=== PATIENT | female | born 1955 | race Hispanic/Latino ===

== ENCOUNTER → 2018-09-01 | Day surgery (SDC) | payer OTHER ==
[~2018-09-01] MED LIST: FENTANYL CITRATE/PF 100MCG/2 ML INJ ONE; FOLIC ACID1 MG PO; METHOTREXATE2.5 MG PO; MIDAZOLAM HCL 2 MG/2 ML VIAL ONE; ORENCIA 250 MG250 MG; ORENCIA125 MG/1 M IV; PROPOFOL IV EMULSION 10 MG/ML 20 ML VIAL ONE
--- NOTE | 2018-09-01 18:19 | Operative Report ---
DATE OF PROCEDURE: September 01, 2018 REFERRING PHYSICIAN: Dr. Luis Alfredo Oconnor. PROCEDURE PERFORMED: Esophagogastroduodenoscopy with biopsies. INDICATIONS FOR EGD: Acid reflux. MEDICATION: Patient was done under MAC. Please see anesthesiologist's note. PROCEDURE: With patient in left lateral decubitus position, flexible fiberoptic Olympus gastroscope was introduced into the esophagus under direct visualization without any difficulty. There was some patchy erythema noted in the distal esophagus. A minute nodule was noted at the GE junction that was biopsied. The scope was then advanced with ease into the stomach traversing a small sliding hiatal hernia. Mucosa overlying the antrum and the body revealed some patchy erythema, [id number] edema, and biopsies were obtained and sent to stain for H. pylori. Pylorus appeared to be of normal contour and shape, was intubated with ease, and the scope was advanced all the way to the second portion of the duodenum. The scope was then withdrawn slowly and mucosa overlying the proximal second portion and the duodenal bulb appeared to be within normal limits. The scope was then withdrawn back into the stomach and retroflexed, and mucosa overlying the fundus and the cardia appeared to be within normal limits. The scope was then straightened out. The stomach was decompressed. The scope was subsequently withdrawn. Patient tolerated the procedure well. IMPRESSION 1. Distal esophagitis. 2. Minute nodule at gastroesophageal junction, biopsied. 3. Small sliding hiatal hernia. 4. Gastritis, biopsied. Biopsies sent to stain for Helicobacter pylori. PLAN: Follow up histology. Initiate Protonix 40 mg 1 p.o. q.a.m. a.c. Job#: [id number] LPA cc:DR. LUIS ALFREDO OCONNOR
--- OUTSIDE RECORDS SUMMARY | 2018-09-11 11:54 | XMS REPORT ---
Author Author Abimbola Barnett Organization [employer] Address Unknown Phone Unavailable Care Team Providers Care Verification Manager Name Role Phone Abimbola Barnett CP Unavailable Allergies No Known Allergies Problems Problem Type Condition Code Onset Dates Condition Status Problem Osteopenia M85.80 Active Problem Long-term use of high-risk medication Z79.899 Active Problem Bursitis of hip M70.70 Active Problem Rheumatoid arthritis involving multiple sites with positive rheumatoid factor M05.79 Active Medications Medication Code System Code Instructions Start Date End Date Status Dosage Meloxicam [facility] 73114932447 7.5 MG Orally Once a day April 16, 2018 Active 1 tablet Results No Known Results Summary Purpose eClinicalWorks Submission
--- OUTSIDE RECORDS SUMMARY | 2018-09-11 11:54 | XMS REPORT ---
Author Author Abimbola Barnett Organization [employer] Address Unknown Phone Unavailable Care Team Providers Care Sound System Installer Name Role Phone Abimbola Barnett CP Unavailable Allergies No Known Allergies Problems Problem Type Condition Code Onset Dates Condition Status Problem Osteopenia M85.80 Active Problem Long-term use of high-risk medication Z79.899 Active Problem Bursitis of hip M70.70 Active Problem Rheumatoid arthritis involving multiple sites with positive rheumatoid factor M05.79 Active Medications Medication Code System Code Instructions Start Date End Date Status Dosage PredniSONE NDC 0 5 MG Orally Once a day as needed May 29, 2018 Active take 1-2 tablets Results No Known Results Summary Purpose eClinicalWorks Submission
--- OUTSIDE RECORDS SUMMARY | 2018-09-11 11:54 | XMS REPORT | CCD ---
Author Author Auto Generated Organization [facility] - [place] Address Unknown Phone Unavailable Care Team Providers Care Lip Reading Teacher Name Role Phone Luis Alfredo Oconnor CP Allergies, Adverse Reactions, Alerts Substance Reaction Status NKDA Active
--- OUTSIDE RECORDS SUMMARY | 2018-09-11 11:54 | XMS REPORT ---
Author Author Abimbola Barnett Organization [employer] Address Unknown Phone Unavailable Care Team Providers Care Pneumatic Hoist Operator Name Role Phone Abimbola Barnett CP Unavailable Allergies, Adverse Reactions, Alerts Substance Reaction Event Type Remicade Info Not Available Drug Allergy Penicillin G Potassium rash Drug Allergy Enbrel Info Not Available Drug Allergy Codeine Sulfate vomiting Drug Allergy Problems Problem Type Condition Code Onset Dates Condition Status Problem Osteopenia M85.80 Active Problem Long-term use of high-risk medication Z79.899 Active Problem Bursitis of hip M70.70 Active Assessment Rheumatoid arthritis involving multiple sites with positive rheumatoid factor M05.79 Active Assessment Long-term use of high-risk medication Z79.899 Active Problem Rheumatoid arthritis involving multiple sites with positive rheumatoid factor M05.79 Active Assessment Bursitis of hip M70.70 Active Medications Medication Code System Code Instructions Start Date End Date Status Dosage Orencia [facility] 41477502537 750 Intravenous Q 4 weeks Active 3 vials Methotrexate [facility] 83604079788 2.5 MG Active TAKE 4 TABLETS BY MOUTH ONCE A WEEK Calcium 500 +D [facility] 07665714725 500-400 MG-UNIT Orally twice a day Sep 07, 2017 Active 1 tablet with a meal Folic Acid ND 30965401494 1 MG Orally Once a day Active 1 tablet Vital Signs Date/Time: Dec 27, 2017 BMI 32.36 Index Weight 165.7 lbs Height 60 in Temperature 96.7 F Cardiac Monitoring Heart Rate 78 /min Blood Pressure Diastolic 84 mm Hg Blood Pressure Systolic 132 mm Hg Results No Known Results Summary Purpose eClinicalWorks Submission
--- OUTSIDE RECORDS SUMMARY | 2018-09-11 11:54 | XMS REPORT ---
Author Author Abimbola Barnett Organization [employer] Address Unknown Phone Unavailable Care Team Providers Care Commercial Credit Head Name Role Phone Abimbola Barnett CP Unavailable [...]
--- OUTSIDE RECORDS SUMMARY | 2018-09-11 11:54 | XMS REPORT ---
Author Author Contreras Monique Organization [employer] Address Unknown Phone Unavailable Care Team Providers Care Tools Administrator Name Role Phone Contreras Monique CP Unavailable Allergies No Known Allergies Problems Problem Type Condition Code Onset Dates Condition Status Problem Osteopenia M85.80 Active Problem Long-term use of high-risk medication Z79.899 Active Problem Bursitis of hip M70.70 Active Problem Rheumatoid arthritis involving multiple sites with positive rheumatoid factor M05.79 Active Medications No Known Medications Results No Known Results Summary Purpose eClinicalWorks Submission
--- OUTSIDE RECORDS SUMMARY | 2018-09-11 11:54 | XMS REPORT ---
Author Author Janine Goel Organization [employer] Address Unknown Phone Unavailable Care Team Providers Care Cloud Engagement Partner Name Role Phone Janine Goel CP Unavailable Allergies, Adverse Reactions, Alerts Substance Reaction Event Type Remicade Info Not Available Drug Allergy Penicillin G Potassium rash Drug Allergy Enbrel Info Not Available Drug Allergy Codeine Sulfate vomiting Drug Allergy Problems Problem Type Condition Code Onset Dates Condition Status Assessment Bursitis of hip M70.70 Active Assessment Hip pain, right M25.551 Active Problem Osteopenia M85.80 Active Problem Long-term use of high-risk medication Z79.899 Active Problem Bursitis of hip M70.70 Active Assessment Long-term use of high-risk medication Z79.899 Active Assessment Osteopenia M85.80 Active Problem Rheumatoid arthritis involving multiple sites with positive rheumatoid factor M05.79 Active Assessment Rheumatoid arthritis involving multiple sites with positive rheumatoid factor M05.79 Active Medications Medication Code System Code Instructions Start Date End Date Status Dosage Folic Acid [facility] 73960977271 1 MG Orally Once a day Active 1 tablet Calcium 500 +D [facility] 89087434087 500-400 MG-UNIT Orally twice a day Sep 07, 2017 Active 1 tablet with a meal Orencia [facility] 99804222193 750 Intravenous Q 4 weeks Active 3 vials Methotrexate [facility] 36098832591 2.5 MG Active TAKE 4 TABLETS BY MOUTH ONCE A WEEK Meloxicam [facility] 85192547342 7.5 MG Orally twice a day as needed Jan 11, 2018 Active 1 tablet Vital Signs Date/Time: Jan 11, 2018 BMI 32.92 Index Weight 163 lbs Height 59 in Temperature 98.2 F Cardiac Monitoring Heart Rate 68 /min Blood Pressure Diastolic 72 mm Hg Blood Pressure Systolic 112 mm Hg Results No Known Results Summary Purpose eClinicalWorks Submission
--- OUTSIDE RECORDS SUMMARY | 2018-09-11 11:54 | XMS REPORT ---
Author Author Contreras Monique Organization [employer] Address Unknown Phone Unavailable Care Team Providers Care Centrex Radio Operator Name Role Phone Contreras Monique CP Unavailable [...]
--- OUTSIDE RECORDS SUMMARY | 2018-09-11 11:54 | XMS REPORT ---
Author Author Contreras Monique Organization [employer] Address Unknown Phone Unavailable Care Team Providers Care Blueprint Machine Operator Name Role Phone Contreras Monique CP [...]
--- OUTSIDE RECORDS SUMMARY | 2018-09-11 11:54 | XMS REPORT ---
Author Author Abimbola Barnett [facility] eClinicalWorks Address Unknown Phone Unavailable Care Team Providers Care Director Of Hemophilia Name Role Phone Abimbola Barnett CP Unavailable [...] use of high-risk medication Z79.899 Active Assessment Bursitis of hip M70.70 Active Problem Rheumatoid arthritis involving multiple sites with positive rheumatoid factor M05.79 Active Assessment Rheumatoid arthritis involving multiple sites with positive rheumatoid factor M05.79 Active Medications Medication Code System Code Instructions Start Date End Date Status Dosage Orencia [facility] 13983076644 750 Intravenous Q 4 weeks Active 3 vials Methotrexate NDC 0 2.5mg Orally Once a week Active 4 tablets Calcium 500 +D [facility] 32725364547 500-400 MG-UNIT Orally twice a day Sep 07, 2017 Active 1 tablet with a meal Calcium 500 +D [facility] [address] Active not defined Folic Acid [facility] 68616011049 1 MG Orally Once a day Active 1 tablet Results No Known Results Summary Purpose eClinicalWorks Submission
--- OUTSIDE RECORDS SUMMARY | 2018-09-11 11:54 | XMS REPORT | CCD ---
Author Author Auto Generated Organization [facility] Outpatient [facility] - [place] Address Unknown Phone Unavailable Care Team Providers Care Certified Substance Abuse Counselor Name Role Phone Luis Alfredo Oconnor CP Allergies, Adverse Reactions, Alerts Substance Reaction Status NKDA Active
--- OUTSIDE RECORDS SUMMARY | 2018-09-11 11:54 | XMS REPORT ---
Author Author Abimbola Barnett Organization [employer] Address Unknown Phone Unavailable Care Team Providers Care Validation Engineer Name Role Phone Abimbola Barnett CP Unavailable [...] Date End Date Status Dosage Folic Acid [facility] 18845106692 1 MG Orally Once a day Active 1 tablet Methotrexate ND 55574070562 2.5 MG Active take 6 tablets by mouth once a week Orencia ND 43667157505 750 Intravenous Q 4 weeks Active 3 vials Calcium 500 +D [facility] 77686488502 500-400 MG-UNIT Orally twice a day Sep 07, 2017 Active 1 tablet with a meal Meloxicam ND 06165008676 7.5 MG Orally Once a day April 16, 2018 Active 1 tablet Vital Signs Date/Time: May 04, 2018 BMI 32.03 Index Weight 164 lbs Height 60 in Temperature 97.9 F Cardiac Monitoring Heart Rate 71 /min Blood Pressure Diastolic 80 mm Hg Blood Pressure Systolic 139 mm Hg Results No Known Results Summary Purpose eClinicalWorks Submission
--- OUTSIDE RECORDS SUMMARY | 2018-09-11 11:54 | XMS REPORT | CCD ---
Author Author Auto Generated Organization [facility] Outpatient [facility] - [place] Address Unknown Phone Unavailable Care Team Providers Care Wedding Makeup Artist Name Role Phone Luis Alfredo Oconnor CP Allergies, Adverse Reactions, Alerts Substance Reaction Status NKDA Active
--- OUTSIDE RECORDS SUMMARY | 2018-09-11 11:54 | XMS REPORT ---
Author Author Carmen Santa Organization [employer] Address Unknown Phone Unavailable Care Team Providers Care Leasing Associate Name Role Phone Carmen Santa Unavailable Allergies, Adverse Reactions, Alerts Substance Reaction [...] Instructions Start Date End Date Status Dosage Calcium 500 +D [facility] [address] Active not defined Methotrexate NDC 0 2.5mg Orally Once a week Active 4 tablets Orencia [facility] 44864499576 750 Intravenous Q 4 weeks Active 3 vials Alive Womens 50+ [facility] 02132430153 Orally Active as directed Folic Acid ND 07583062273 1 MG Orally Once a day Active 1 tablet Calcium 500 +D [facility] 13527505463 500-400 MG-UNIT Orally twice a day Sep 07, 2017 Active 1 tablet with a meal Vital Signs Date/Time: Oct 09, 2017 BMI 31.83 Index Weight 163 lbs Height 60 in Temperature 96.8 F Cardiac Monitoring Heart Rate 69 /min Blood Pressure Diastolic 83 mm Hg Blood Pressure Systolic 129 mm Hg Results No Known Results Summary Purpose eClinicalWorks Submission
--- OUTSIDE RECORDS SUMMARY | 2018-09-11 11:54 | XMS REPORT ---
Author Author Abimbola Barnett [facility] eClinical[employer] Address Unknown Phone Unavailable Care Team Providers Care Stucco Laborer Name Role Phone Abimbola Barnett CP Unavailable [...] Problem Bursitis of hip M70.70 Active Assessment Bursitis of hip M70.70 Active Problem Rheumatoid arthritis involving multiple sites with positive rheumatoid factor M05.79 Active Assessment Rheumatoid arthritis involving multiple sites with positive rheumatoid factor M05.79 Active Medications Medication Code System Code Instructions Start Date End Date Status Dosage Folic Acid [facility] 31767982992 1 MG Orally Once a day Active 1 tablet Methotrexate NDC 0 2.5mg Orally Once a week Active 4 tablets Calcium 500 +D [facility] 30328473468 500-400 MG-UNIT Orally twice a day Sep 07, 2017 Active 1 tablet with a meal Calcium 500 +D [facility] [address] Active not defined Orencia [facility] 39466748142 750 Intravenous Q 4 weeks Active 3 vials Vital Signs Date/Time: Oct 31, 2017 BMI 33.32 Index Weight 165 lbs Height 59 in Temperature 97.8 F Cardiac Monitoring Heart Rate 80 /min Blood Pressure Diastolic 78 mm Hg Blood Pressure Systolic 118 mm Hg Results No Known Results Summary Purpose eClinicalWorks Submission
--- OUTSIDE RECORDS SUMMARY | 2018-09-11 11:54 | XMS REPORT ---
Author Author Janine Goel Organization [employer] Address Unknown Phone Unavailable Care Team Providers Care Hearing Care Practitioner Name Role Phone Janine Goel CP Unavailable Allergies, Adverse Reactions, Alerts Substance Reaction Event Type Remicade Info Not Available Drug Allergy Penicillin G Potassium rash Drug Allergy Enbrel Info Not Available Drug Allergy Codeine Sulfate vomiting Drug Allergy Problems Problem Type Condition Code Onset Dates Condition Status Problem Osteopenia M85.80 Active Problem Rheumatoid arthritis involving multiple sites with positive rheumatoid factor M05.79 Active Problem Bursitis of hip M70.70 Active Assessment Long-term use of high-risk medication Z79.899 Active Assessment Osteopenia M85.80 Active Problem Long-term use of high-risk medication Z79.899 Active Assessment Rheumatoid arthritis involving multiple sites with positive rheumatoid factor M05.79 Active Medications Medication Code System Code Instructions Start Date End Date Status Dosage Alive Womens 50+ [facility] [address] Orally Active as directed Folic Acid [facility] [address]-57 1 MG Orally Once a day Active 1 tablet Methotrexate ND 0 2.5mg Orally Once a week Sep 02, 2018 Active 4 tablets Orencia [facility] [address]-33 750 Intravenous Q 4 weeks Active 3 vials Calcium 500 +D [facility] [address] 500-400 MG-UNIT Orally twice a day Sep 07, 2017 Jan 05, 2018 Active 1 tablet with a meal Vital Signs Date/Time: Sep 07, 2017 BMI 31.44 Index Weight 161 lbs Height 60 in Temperature 97.1 F Cardiac Monitoring Heart Rate 66 /min Blood Pressure Diastolic 83 mm Hg Blood Pressure Systolic 135 mm Hg Results No Known Results Summary Purpose eClinicalWorks Submission
--- OUTSIDE RECORDS SUMMARY | 2018-09-11 11:54 | XMS REPORT | CCD ---
Author Author Auto Generated Organization [facility] Outpatient Imaging - [place] Address Unknown Phone Unavailable Care Team Providers Care Oem Sales Manager Name Role Phone Luis Alfredo Oconnor CP Allergies, Adverse Reactions, Alerts Substance Reaction Status NKDA Active
--- OUTSIDE RECORDS SUMMARY | 2018-09-11 11:54 | XMS REPORT ---
Author Author Janine Goel Organization [employer] Address Unknown Phone Unavailable Care Team Providers Care Grainer Machine Name Role Phone Janine Goel CP Unavailable Allergies No Known Allergies Problems [...]
--- OUTSIDE RECORDS SUMMARY | 2018-09-11 11:54 | XMS REPORT | Summary of Care ---
Author Organization Unknown Address Unknown Phone Unavailable Encounter HQ Encntr_[email or web address]([facility]) [id number] Date(s): 09/13/14 - 09/13/14 [facility] Outpatient Imaging - [address] [address] [place] Discharge Disposition: Home Physician Attending: Luis Alfredo Oconnor MD Reason for Visit V76.12 - SCREEN MAMMOGRA Problem List No data available for this section Allergies, Adverse Reactions, Alerts Substance Reaction Severity Status NKDA Active Medications No data available for this section Medications Administered During Your Visit No data available for this section Immunizations No data available for this section
--- OUTSIDE RECORDS SUMMARY | 2018-09-11 11:54 | XMS REPORT | CCD ---
Author Author Auto Generated Organization [facility] Outpatient Imaging - [place] Address Unknown Phone Unavailable Care Team Providers Care Religious Assistant Name Role Phone Luis Alfredo Oconnor CP Allergies, Adverse Reactions, Alerts Substance Reaction Status NKDA Active
--- OUTSIDE RECORDS SUMMARY | 2018-09-11 11:54 | XMS REPORT ---
Author Author Abimbola Barnett [facility] eClinicalWorks Address Unknown Phone Unavailable Care Team Providers Care Standards Analyst Name Role Phone Abimbola Barnett CP Unavailable [...]
--- OUTSIDE RECORDS SUMMARY | 2018-09-11 11:54 | XMS REPORT | Continuity of Care Document ---
Author Author [facility] Interface Address Unknown Phone Unavailable Problems Problem Status Onset Date Classification Date Reported Comments Source Osteopenia Active Problem 08/23/2018 Stefan Hannaer Long-term use of high-risk medication Active Problem 08/23/2018 Stefan Monique Bursitis of hip Active Problem 08/23/2018 Stefan Hannaer Rheumatoid arthritis involving multiple sites with positive rheumatoid factor Active Problem 08/23/2018 Stefan Monique Hip pain, right Active Diagnosis 01/16/2018 Stefan Monique Medications Medication Details Route Status Patient Instructions Ordering Provider Order Date Source Methotrexate 4 tablets Orally Active 2.5mg Orally Once a week Fakoya 09/02/2018 Stefan Monique PredniSONE take 1-2 tablets Orally Active 5 MG Orally Once a day as needed Anibal 05/29/2018 Stefan Monique Meloxicam 1 tablet Orally Active 7.5 MG Orally Once a day Anibal 04/16/2018 Stefan Monique Meloxicam 1 tablet Orally Active 7.5 MG Orally twice a day as needed Anibal 01/11/2018 Stefan Monique Calcium 500 +D 1 tablet with a meal Orally Active 500-400 MG- UNIT Orally twice a day Fakoya 09/07/2017 Stefan Monique Calcium 500 +D 1 tablet with a meal Orally Active 500-400 MG- UNIT Orally twice a day Anibal 09/07/2017 Stefan Hannaer Alive Womens 50+ as directed Orally Active Orally Fakoya Stefansilverio Monique Folic Acid 1 tablet Orally Active 1 MG Orally Once a day Fakoya Stefan Monique Orencia 3 vials Intravenous Active 750 Intravenous Q 4 weeks Faka Stefan Monique Calcium 500 +D not defined NA Active Anibal Stefan Monique Methotrexate 4 tablets Orally Active 2.5mg Orally Once a week Anibal Stefan Monique Orencia 3 vials Intravenous Active 750 Intravenous Q 4 weeks Anibal Stefansilverio Monique Alive Womens 50+ as directed Orally Active Orally [place] Stefan Monique Folic Acid 1 tablet Orally Active 1 MG Orally Once a day Anibal Stefan Monique Methotrexate take 6 tablets by mouth once a week NA Active 2.5 MG Anibalarely Monique Meloxicam 1 tablet Orally Active 7.5 MG Orally as needed Anibal Monique Calcium 500 +D 1 tablet with a meal Orally Active 500-400 MG- UNIT Orally twice a day Anibal Monique Allergies, Adverse Reactions, Alerts Substance Category Reaction Severity Reaction type Status Date Reported Comments Source Remicade Adverse Reaction Info Not Available Adverse Reaction Active 08/15/2018 Stefan Monique Penicillin G Potassium Adverse Reaction rash Adverse Reaction Active 08/15/2018 Stefan Monique Enbrel Adverse Reaction Info Not Available Adverse Reaction Active 08/15/2018 Stefan Monique Codeine Sulfate Adverse Reaction vomiting Adverse Reaction Active 08/15/2018 Stefan Monique Immunizations Immunization Date Given Site Status Last Updated Comments Source Results Order Name Results Value Reference Range Date Interpretation Comments Source Digital Mammo Screening [place] Digital Mammo Screening [place] - DIGITAL MAMMO SCREENING [place] BILATERAL DIGITAL SCREENING MAMMOGRAM WITH CAD: 09/13/2014 CLINICAL: Routine Screening. Current study was evaluated with a Computer Aided Detection (CAD) system. Comparison is made to exams dated: 08/29/2007 mammogram, 11/17/2008 mammogram, 11/18/2009 mammogram and 01/28/2011 mammogram - [facility]. The tissue of both breasts is heterogeneously dense, which could obscure detection of small masses. No significant masses, calcifications, or other findings are seen in either breast. There has been no significant interval change. IMPRESSION: NEGATIVE There is no mammographic evidence of malignancy. A screening mammogram in one year is recommended. Dr. Irvin Carrizales M.D. eoc/penrad:09/15/2014 11:02:16 Optomechanical Technician: Annia CURIEL(R)(M), [facility] This exam was dictated and interpreted by [id number] for ELIANE Ratliff. letter sent: Normal exam Mammogram BI-RADS: 1 Negative 09/13/2014 - - Read by: Irvin Carrizales MD Dictated Date/time: 09/15/14 11:02 Electronically Signed by: Irvin Carrizales MD 09/15/14 11:02 FINAL REPORT ELIANE Marc Chest 2 views Chest 2 views Chest x-ray 2 views INDICATION: Bronchiectasis COMPARISON: 02/05/2013 FINDINGS: Heart size and central vasculature are within normal limits. There is no effusion or focal pneumonia. No pneumothorax. No acute osseous pathology. Elevation of the left hemidiaphragm is stable. Ill-defined nodular density in the right base is unchanged. IMPRESSION: No acute cardiopulmonary process. 02/03/2014 - - Read by: Samreen Orosco Dictated Date/time: 02/03/14 08:56 Electronically Signed by: Samreen Orosco MD 02/03/14 08:57 [facility] Bone Density-Dual Energy Absorptionmetry Bone Density-Dual Energy Absorptionmetry - Bone Density-Dual Energy Absorptionmetry BONE DENSITY EVALUATION: 09/24/2013 CLINICAL DATA: Post menopausal. COMPARISON: 01/28/2011 Right hip using Lunar Dual Energy X-Ray Absorptiometry from [facility] with reported normal fracture risk, BMD of 0.980g/cm2, T-score of -0.20, Z-score of 0.50 and 106.0% age-match bone mineralization. 01/28/2011 Left hip using Lunar Dual Energy X-Ray Absorptiometry from [facility] with reported normal fracture risk, BMD of 0.997g/cm2, T-score of -0.10, Z-score of 0.60 and 108.0% age-match bone mineralization. 01/28/2011 AP L1-L4 region of spine using Lunar Dual Energy X-Ray Absorptiometry from [facility] with reported normal fracture risk, BMD of 1.200g/cm2, T-score of 0.20, Z-score of 1.00 and 111.0% age-match bone mineralization. FINDINGS: Bone density evaluation was performed 09/24/2013 on the AP L1-L4 region of spine using Lunar Dual Energy X-Ray Absorptiometry. The BMD average for the exam is 1.224 g/cm2. The T-score is 0.40 and the Z-score is 1.40. These values indicate 116.0% for age-matched controls. Since the previous similar exam of 01/28/2011, there has been a +0.024 or +2.0% change in the BMD value which represents no significant interval change in bone density. This matches the World Health Organization's criteria for normal bone density and places the patient within normal limits of fracture risk. An additional bone density evaluation was performed 09/24/2013 on the right femur neck using Lunar Dual Energy X-Ray Absorptiometry. The BMD average for the exam is 0.856 g/cm2. The T-score is -1.30 and the Z-score is -0.20. These values indicate 97.0% for age-matched controls. This matches the World Health Organization's criteria for osteopenia and places the patient at a medium risk for fracture. An additional bone density evaluation was performed 09/24/2013 on the right hip using Lunar Dual Energy X-Ray Absorptiometry. The BMD average for the exam is 1.010 g/cm2. The Z-score is 0.80. These values indicate 111.0% for age-matched controls. Since the previous similar exam of 01/28/2011, there has been a +0.030 or +3.1% change in the BMD value which represents no significant interval change in bone density. Complete risk assessment of this region was not determined. An additional bone density evaluation was performed 09/24/2013 on the left femur neck using Lunar Dual Energy X-Ray Absorptiometry. The BMD average for the exam is 0.832 g/cm2. The T-score is -1.50 and the Z-score is -0.40. These values indicate 94.0% for age-matched controls. This matches the World Health Organization's criteria for osteopenia and places the patient at a medium risk for fracture. An additional bone density evaluation was performed 09/24/2013 on the left hip using Lunar Dual Energy X-Ray Absorptiometry. The BMD average for the exam is 0.983 g/cm2. The T-score is -0.20 and the Z-score is 0.60. These values indicate 108.0% for age-matched controls. Since the previous similar exam of 01/28/2011, there has been a -0.014 or -1.4% change in the BMD value which represents no significant interval change in bone density. This matches the World Health Organization's criteria for normal bone density and places the patient within normal limits of fracture risk. IMPRESSION: OSTEOPENIA Patient is at medium risk for fracture. Compared to BMD of prior exam, there has been no significant change in bone density. Dr. Ekaterina Maldonado D.O. /penrad:09/24/2013 12:35:14 Optomechanical Technician: Beth Piper, [facility] 09/24/2013 - - Read by: Ekaterina Maldonado Dictated Date/time: 09/24/13 12:35 Electronically Signed by: Ekaterina Maldonado , 09/24/13 12:35 FINAL REPORT ELIANE [place] Digital Mammo Screening Tyson MA Digital Mammo Screening [place] MA - DIGITAL MAMMO SCREENING [place] MA BILATERAL DIGITAL SCREENING MAMMOGRAM WITH CAD: 09/24/2013 CLINICAL: Routine. Current study was evaluated with a Computer Aided Detection (CAD) system. Comparison is made to exams dated: 09/08/2012 mammogram and 01/28/2011 mammogram - [facility]. There are scattered fibroglandular elements in both breasts that could obscure a lesion on mammography. No significant masses, calcifications, or other findings are seen in either breast. There has been no significant interval change. IMPRESSION: NEGATIVE There is no mammographic evidence of malignancy. A screening mammogram in one year is recommended. Dr. Ekaterina Maldonado D.O. /penrad:09/24/2013 12:15:13 Optomechanical Technician: Swetha CURIEL(R)(M), [facility] This exam was dictated and interpreted by [id number] for ELIANE Marc. letter sent: Normal exam Mammogram BI-RADS: 1 Negative 09/24/2013 - - Read by: Ekaterina Maldonado Dictated Date/time: 09/24/13 12:15 Electronically Signed by: Ekaterina Maldonado , 09/24/13 12:15 FINAL REPORT ELIANE Marc Hip min 2 views Hip min 2 views Clinical Indication: hip pain Findings: Two views of the left hip are obtained. No acute fracture or dislocation is seen. Joint spaces are within normal limits. Frontal view of the pelvis is unremarkable. Impression: 1. No abnormality identified in the left hip. 07/08/2013 - - Read by: Morgan Powell Dictated Date/time: 07/08/13 13:13 Electronically Signed by: Morgan Powell MD 07/08/13 13:13 FINAL REPORT CRISTINE Marc Vital Signs Vital Sign Value Date Comments Source Weight 167 08/15/2018 Stefan Monique Height 59.5 08/15/2018 Stefan Monique Temperature Oral (F) 98.1 F 08/15/2018 Stefan Monique Heart Rate 68 08/15/2018 Stefan Monqiue Diastolic (mm Hg) 90 08/15/2018 Stefan Monique Systolic (mm Hg) 118 08/15/2018 Stefan Monique Weight 164 05/04/2018 Stefan Monique Height 60 05/04/2018 Stefan Monique Temperature Oral (F) 97.9 F 05/04/2018 Stefan Monique Heart Rate 71 05/04/2018 Stefan Monique Diastolic (mm Hg) 80 05/04/2018 Stefan Monique Systolic (mm Hg) 139 05/04/2018 Stefan Monique Weight 168 03/06/2018 Stefan Monique Height 60 03/06/2018 Stefan Monique Temperature Oral (F) 97.3 F 03/06/2018 Stefan Monique Heart Rate 74 03/06/2018 Stefan Monique Diastolic (mm Hg) 78 03/06/2018 Stefan Monique Systolic (mm Hg) 130 03/06/2018 Stefan Monique Weight 163 01/11/2018 Stefan Monique Height 59 01/11/2018 Stefan Monique Temperature Oral (F) 98.2 F 01/11/2018 Stefan Monique Heart Rate 68 01/11/2018 Stefan Monique Diastolic (mm Hg) 72 01/11/2018 Stefan Monique Systolic (mm Hg) 112 01/11/2018 Stefan Monique Weight 165.7 12/27/2017 Stefan Monique Height 60 12/27/2017 Stefan Monique Temperature Oral (F) 96.7 F 12/27/2017 Stefan Monique Heart Rate 78 12/27/2017 Stefan Monique Diastolic (mm Hg) 84 12/27/2017 Stefan Monique Systolic (mm Hg) 132 12/27/2017 Stefan Monique Weight 165 10/31/2017 Stefan Monique Height 59 10/31/2017 Stefan Monique Temperature Oral (F) 97.8 F 10/31/2017 Stefan Monique Heart Rate 80 10/31/2017 Stefan Monique Diastolic (mm Hg) 78 10/31/2017 Stefan Monique Systolic (mm Hg) 118 10/31/2017 Stefan Monique Weight 163 10/09/2017 Stefan Monique Height 60 10/09/2017 Stefan Monique Temperature Oral (F) 96.8 F 10/09/2017 Stefan Monique Heart Rate 69 10/09/2017 Stefan Monique Diastolic (mm Hg) 83 10/09/2017 Stefan Monique Systolic (mm Hg) 129 10/09/2017 Stefan Monique Weight 161 09/07/2017 Stefan Monique Height 60 09/07/2017 Stefan Monique Temperature Oral (F) 97.1 F 09/07/2017 Stefan Monique Heart Rate 66 09/07/2017 Stefan Monique Diastolic (mm Hg) 83 09/07/2017 Stefan Monique Systolic (mm Hg) 135 09/07/2017 Stefan Monique Encounters Location Location Details Encounter Type Encounter Number Reason For Visit Attending Provider ADM Date DC Date Status Source [facility] [place] [facility] [id number] _[id number] Dyllan Serrato 02/03/2014 02/04/2014 [facility] [place] [facility] [id number] Luis Alfredo Oconnor 09/13/2014 09/14/2014 [facility] Procedures Procedure Code Date Perfomer Comments Source
--- OUTSIDE RECORDS SUMMARY | 2018-09-11 11:54 | XMS REPORT | CCD ---
Author Author Auto Generated Organization [facility] Outpatient Imaging - [place] Address Unknown Phone Unavailable Care Team Providers Care Prover Name Role Phone Luis Alfredo Oconnor CP Allergies, Adverse Reactions, Alerts Substance Reaction Status NKDA Active
--- OUTSIDE RECORDS SUMMARY | 2018-09-11 11:54 | XMS REPORT ---
Author Author Abimbola Barnett Organization [employer] Address Unknown Phone Unavailable Care Team Providers Care Customer Orders Clerk Name Role Phone Abimbola Barnett CP Unavailable [...] End Date Status Dosage Calcium 500 +D [facility] 07214542101 500-400 MG-UNIT Orally twice a day Sep 07, 2017 Active 1 tablet with a meal Methotrexate ND 29900124931 2.5 MG Active TAKE 4 TABLETS BY MOUTH ONCE A WEEK Folic Acid ND 82645993680 1 MG Orally Once a day Active 1 tablet Orencia [facility] 84229110594 750 Intravenous Q 4 weeks Active 3 vials Meloxicam [facility] 53090775917 7.5 MG Orally twice a day as needed Jan 11, 2018 Active 1 tablet Vital Signs Date/Time: March 06, 2018 BMI 32.81 Index Weight 168 lbs Height 60 in Temperature 97.3 F Cardiac Monitoring Heart Rate 74 /min Blood Pressure Diastolic 78 mm Hg Blood Pressure Systolic 130 mm Hg Results No Known Results Summary Purpose [employer] Submission
--- OUTSIDE RECORDS SUMMARY | 2018-09-11 11:54 | XMS REPORT ---
Author Author Contreras oMnique Organization [employer] Address Unknown Phone Unavailable Care Team Providers Care Pet Ambassador Name Role Phone Contreras Monique CP Unavailable [...]
--- OUTSIDE RECORDS SUMMARY | 2018-09-11 11:54 | XMS REPORT ---
Author Author Contreras Monique Organization [employer] Address Unknown Phone Unavailable Care Team Providers Care Heel Finisher Name Role Phone Contreras Monique CP Unavailable [...]
--- OUTSIDE RECORDS SUMMARY | 2018-09-11 11:54 | XMS REPORT ---
Author Author Contreras Monique Organization [employer] Address Unknown Phone Unavailable Care Team Providers Care Computer Typesetter Name Role Phone Contreras Monique CP Unavailable [...]
--- OUTSIDE RECORDS SUMMARY | 2018-09-11 11:54 | XMS REPORT ---
Author Author Abimbola Barnett [facility] [employer] Address Unknown Phone Unavailable Care Team Providers Care Thermostat Repairer Name Role Phone Abimbola Barnett CP Unavailable [...] Instructions Start Date End Date Status Dosage Methotrexate [facility] 31570354102 2.5 MG Orally once a week Active take 6 tablets Results No Known Results Summary Purpose [employer] Submission
--- OUTSIDE RECORDS SUMMARY | 2018-09-11 11:54 | XMS REPORT | CCD ---
Author Author Auto Generated Organization [facility] Outpatient Imaging - [place] Address Unknown Phone Unavailable Care Team Providers Care Supervisor Car And Yard Name Role Phone Jeff Wolfe CP Allergies, Adverse Reactions, Alerts Substance Reaction Status NKDA Active
--- OUTSIDE RECORDS SUMMARY | 2018-09-11 11:54 | XMS REPORT ---
Author Author Contreras Monique Organization [employer] Address Unknown Phone Unavailable Care Team Providers Care Lead Relay Tester Name Role Phone Contreras Monique CP Unavailable [...]
--- OUTSIDE RECORDS SUMMARY | 2018-09-11 11:54 | XMS REPORT ---
Author Author Contreras Monique Organization [employer] Address Unknown Phone Unavailable Care Team Providers Care Building Trades Instructor Name Role Phone Contreras Monique CP Unavailable [...]
--- OUTSIDE RECORDS SUMMARY | 2018-09-11 11:54 | XMS REPORT | CCD ---
Author Author Auto Generated Organization [facility] Outpatient Imaging - [place] Address Unknown Phone Unavailable Care Team Providers Care Certified Registered Nurse Practitioner Name Role Phone Luis Alfredo Oconnor CP Allergies, Adverse Reactions, Alerts Substance Reaction Status NKDA Active
--- OUTSIDE RECORDS SUMMARY | 2018-09-11 11:54 | XMS REPORT | Summary of Care ---
Author Organization Unknown Address Unknown Phone Unavailable Encounter Dates Location Diagnoses Discharge Providers Disposition 02/03/2014 [facility] Outpatient Imaging - Home Dyllan Serrato [facility] 02/03/[address] Reason for Visit 494.0 - BRONCHIECTAS W/ Problem List No data available for this section Allergies, Adverse Reactions, Alerts Status Substance Reaction Severity Active NKDA Medications No data available for this section Medications Administered During Your Visit No data available for this section Immunizations No data available for this section
--- OUTSIDE RECORDS SUMMARY | 2018-09-11 11:54 | XMS REPORT | CCD ---
Author Author Auto Generated Organization [facility] Outpatient Imaging - [place] Address Unknown Phone Unavailable Care Team Providers Care Transplant Surgeon Name Role Phone Luis Alfredo Oconnor CP Allergies, Adverse Reactions, Alerts Substance Reaction Status NKDA Active
--- OUTSIDE RECORDS SUMMARY | 2018-09-11 11:54 | XMS REPORT ---
Author Author Contreras Monique Organization [employer] Address Unknown Phone Unavailable Care Team Providers Care Anthropologist Name Role Phone Contreras Monique CP Unavailable [...]
--- OUTSIDE RECORDS SUMMARY | 2018-09-11 11:54 | XMS REPORT ---
Author Author Contreras Monique Organization [employer] Address Unknown Phone Unavailable Care Team Providers Care Telecommunication Operator Name Role Phone Contreras Monique CP [...]
--- OUTSIDE RECORDS SUMMARY | 2018-09-11 11:55 | XMS REPORT ---
Author Author Contreras Monique Organization [employer] Address Unknown Phone Unavailable Care Team Providers Care Sander Wooden Pencils Name Role Phone Contreras Monique CP Unavailable [...]
--- OUTSIDE RECORDS SUMMARY | 2018-09-11 11:55 | XMS REPORT | Summary of Care ---
Author Author [facility] - [place] Organization [facility] [place] Address Unknown Phone Unavailable Encounter HQ Encntr_alias(FIN) [id number] Date(s): 12/09/16 - 12/09/16 [facility] Outpatient Imaging - [place] [address] [place] [address] [phone] Discharge Disposition: Home or Self Care Attending Physician: Asha Ulloa MD Vital Signs No data available for this section Problem List No data available for this section Allergies, Adverse Reactions, Alerts Substance Reaction Severity Status NKDA Active Medications No data available for this section Results No data available for this section Immunizations No data available for this section Procedures No data available for this section Social History No data available for this section Assessment and Plan No data available for this section
--- OUTSIDE RECORDS SUMMARY | 2018-09-11 11:55 | XMS REPORT | Summary of Care ---
Author Author [facility] Organization [facility] Address Unknown Phone Unavailable Encounter HQ Encntr_alias(FIN) [id number] Date(s): 09/12/17 - 09/12/17 [facility] [address] [place] [address]- [phone] Final: Encounter for screening mammogram for malignant neoplasm of breast Discharge Disposition: Home or Self Care Attending Physician: KAEL LOVELL Referring Physician: KAEL LOVELL Vital Signs No data available for this [...]
--- OUTSIDE RECORDS SUMMARY | 2018-09-11 11:55 | XMS REPORT ---
Author Author Abimbola Barnett Organization [employer] Address Unknown Phone Unavailable Care Team Providers Care Steam Cleaner Name Role Phone Abimbola Barnett CP Unavailable [...] Date End Date Status Dosage Folic Acid [facility] 50287299554 1 MG Orally Once a day Active 1 tablet Orencia ND 07210541174 750 Intravenous Q 4 weeks Active 3 vials Meloxicam ND 04466237110 7.5 MG Orally as needed Active 1 tablet Calcium 500 +D [facility] 84945599172 500-400 MG-UNIT Orally twice a day Active 1 tablet with a meal Methotrexate ND 62487748575 2.5 MG Active take 6 tablets by mouth once a week Vital Signs Date/Time: Aug 15, 2018 BMI 33.16 Index Weight 167 lbs Height 59.5 in Temperature 98.1 F Cardiac Monitoring Heart Rate 68 /min Blood Pressure Diastolic 90 mm Hg Blood Pressure Systolic 118 mm Hg Results No Known Results Summary Purpose [employer] Submission
--- OUTSIDE RECORDS SUMMARY | 2018-09-11 11:55 | XMS REPORT | Summary of Care ---
Author Author [facility] Out[facility] - [place] Organization [facility] - [place] Address Unknown Phone Unavailable Encounter HQ Encntr_alias(FIN) [id number] Date(s): 11/13/15 - 11/13/15 [facility] Outpatient Imaging - [place] [address] [place], [place] [address] [phone] Discharge Disposition: Home Attending Physician: Luis Alfredo Oconnor MD Vital Signs No data available for [...]
--- OUTSIDE RECORDS SUMMARY | 2018-09-11 11:55 | XMS REPORT | Summary of Care ---
Author Author [facility] Outpatient Imaging - [place] Organization [facility] - [place] Address Unknown Phone Unavailable Encounter HQ Olivia_rigo(FIN) [id number] Date(s): 01/11/18 - 01/11/18 [facility] Outpatient Imaging - [place] [address] [address] [phone] Encounter Diagnosis Rheumatoid arthritis with rheumatoid factor of multiple sites without organ or s ystems involvement (Final) - 01/16/18 Other bursitis of hip, unspecified hip (Final) - Pain in right hip (Final) - Discharge Disposition: Home or Self Care Attending Physician: Janine Nicole DO Vital Signs No data available for this [...]
--- OUTSIDE RECORDS SUMMARY | 2018-09-11 11:55 | XMS REPORT | Summary of Care ---
Author Author [facility] [place] Organization [facility] [place] Address Unknown Phone Unavailable Encounter HQ Encntr_alias(FIN) [id number] Date(s): 01/26/16 - 01/26/16 [facility] [place] [address] [place], [place] [address] [phone] Discharge Disposition: Home Attending Physician: Dyllan Serrato MD Vital Signs No data available for [...]
--- OUTSIDE RECORDS SUMMARY | 2018-09-11 11:55 | XMS REPORT | Summary of Care ---
Author Organization Unknown Address Unknown Phone Unavailable Encounter HQ Encntr_alias([facility]) [id number] Date(s): 01/19/15 - 01/19/15 [facility] Outpatient Imaging - [address] [address] [phone] Discharge Disposition: Home Physician Attending: Dyllan Serrato MD Vital Signs No data [...]
== END | disposition home or self-care (01) ==
LOC: ENDO 13:22
PROVIDERS: ATTEND Internal Medicine Gastroenterology
DX: K22.10 Ulcer of esophagus without bleeding (principal); K29.70 Gastritis, unspecified, without bleeding; K44.9 Diaphragmatic hernia without obstruction or gangrene; K21.9 Gastro-esophageal reflux disease without esophagitis; M06.9 Rheumatoid arthritis, unspecified; R03.0 Elevated blood-pressure reading, without diagnosis of hypertension; I49.3 Ventricular premature depolarization; Z88.6 Allergy status to analgesic agent; Z88.0 Allergy status to penicillin; Z01.810 Encounter for preprocedural cardiovascular examination; Z68.33 Body mass index [BMI] 33.0-33.9, adult; Z86.11 Personal history of tuberculosis
CPT/HCPCS: 43239; 93005; J2250

== ENCOUNTER → 2022-12-17 | Day surgery (SDC) | payer MEDICARE, BC ==
[~2022-12-17] MED LIST changes: +ALBUTEROL0.63 MG/3 NEB; +ALBUTEROL2.5 MG/3 M INH; -PROPOFOL IV EMULSION 10 MG/ML 20 ML VIAL ONE; +SODIUM CHLORIDE3 ML NEB
[2022-12-17 11:00] VITALS: BP 141/63
== END | disposition home or self-care (01) ==
LOC: OR 07:51
PROVIDERS: ATTEND Internal Medicine Gastroenterology
DX: K29.50 Unspecified chronic gastritis without bleeding (principal); D12.3 Benign neoplasm of transverse colon; K20.90 Esophagitis, unspecified without bleeding; K57.30 Diverticulosis of large intestine without perforation or abscess without bleeding; K64.8 Other hemorrhoids; Z71.3 Dietary counseling and surveillance; G47.33 Obstructive sleep apnea (adult) (pediatric); J44.9 Chronic obstructive pulmonary disease, unspecified; M06.9 Rheumatoid arthritis, unspecified; Z71.89 Other specified counseling; Z88.6 Allergy status to analgesic agent; Z88.0 Allergy status to penicillin; Z01.810 Encounter for preprocedural cardiovascular examination; Z79.899 Other long term (current) drug therapy; Z68.33 Body mass index [BMI] 33.0-33.9, adult
CPT/HCPCS: 43239; 45385; 88305; 88342; 93005; C9113; J2250; J3010; 88304; 88312

== ENCOUNTER 2023-01-20 18:43 | Emergency (ER) | payer MEDICARE, BC ==
[~2023-01-20] VITALS: Ht 149.9 cm; Wt 74.8 kg
[~2023-01-20 18:43] MED LIST changes: -FENTANYL CITRATE/PF 100MCG/2 ML INJ ONE; -MIDAZOLAM HCL 2 MG/2 ML VIAL ONE
[2023-01-20] MEDS ORDERED: SODIUM CHLORIDE 0.9% 1000ML 1,000 ML IV ONE (20:00)
[2023-01-20] MEDS ORDERED: ACETAMINOPHEN 325 MG TAB PO ONE (20:00)
[2023-01-20 20:26] LABS: BASOPHILS % 0.3 % (0.0-1.0); EOSINOPHILS # (AUTO) 0.3 (0.0-0.4); EOSINOPHILS % 2.5 % (0.0-6.0); HEMATOCRIT 42.1 % (34.2-44.1); LYMPHOCYTES # (AUTO) 0.5 (1.0-3.2); LYMPHOCYTES % 3.9 % (18.0-39.1); MEAN CORPUSCULAR HEMOGLOBIN 30.1 pg (28-32); MEAN CORPUSCULAR HGB CONC 33.3 g/dL (31-35); MEAN CORPUSCULAR VOLUME 90.5 fL (81-99); MONOCYTES # (AUTO) 0.3 (0.2-0.8); MONOCYTES % 2.4 % (4.4-11.3); NEUTROPHILS % 90.3 % (38.7-80.0); PLATELET COUNT 293 x10e3/uL (140-360); RED BLOOD COUNT 4.65 x10e6/uL (3.6-5.1); RED CELL DISTRIBUTION WIDTH 15.5 % (11.7-14.4)
[2023-01-20 20:40] LABS: ALANINE AMINOTRANSFERASE 21 IU/L (0-55); ALBUMIN/GLOBULIN RATIO 1.1 (0.8-2.0); ALKALINE PHOSPHATASE 99 IU/L (40-150); ANION GAP 14.4 mmol/L (8-16); BLOOD UREA NITROGEN 10 mg/dL (7-26); BUN/CREATININE RATIO 15 (6-25); CALCIUM 9.5 mg/dL (8.4-10.2); CARBON DIOXIDE 21 mmol/L (22-29); CHLORIDE 107 mmol/L (98-107); CREATINE KINASE 68 IU/L (29-168); CREATININE, SERUM 0.67 mg/dL (0.57-1.11); GLUCOSE 132 mg/dL (74-118); POTASSIUM 3.4 mmol/L (3.5-5.1); SODIUM 139 mmol/L (136-145)
[2023-01-20] MEDS ORDERED: IOPAMIDOL 370 MG/ML 100 ML INFUS..BTL INJ ONE (21:19)
[2023-01-20] MEDS ORDERED: DOXYCYCLINE HY100 MG PO (22:55)
== END 2023-01-20 23:15 | disposition home or self-care (01) ==
LOC: ER 18:49
DX: R50.9 Fever, unspecified (principal); J18.9 Pneumonia, unspecified organism; R05.9 Cough, unspecified; J45.909 Unspecified asthma, uncomplicated; M06.9 Rheumatoid arthritis, unspecified; Z20.822 Contact with and (suspected) exposure to COVID-19; R94.31 Abnormal electrocardiogram [ECG] [EKG]
CPT/HCPCS: 36415; 71260; 80053; 82550; 82553; 83605; 83880; 84484; 85025; 87040; 93005; 99284; J0696; J7030; Q9967; U0002

== ENCOUNTER → 2024-10-25 | Day surgery (SDC) | payer MEDICARE, BC ==
[2024-10-22 11:31] LABS: BASOPHILS # (AUTO) 0.1 (0.0-0.1); BASOPHILS % 0.8 % (0.0-1.0); EOSINOPHILS # (AUTO) 0.3 (0.0-0.4); EOSINOPHILS % 3.1 % (0.0-6.0); HEMATOCRIT 47.4 % (34.2-44.1); HEMOGLOBIN 14.6 g/dL (12.0-16.0); LYMPHOCYTES # (AUTO) 2.1 (1.0-3.2); LYMPHOCYTES % 24.1 % (18.0-39.1); MEAN CORPUSCULAR HEMOGLOBIN 29.9 pg (28-32); MEAN CORPUSCULAR HGB CONC 30.8 g/dL (31-35); MEAN CORPUSCULAR VOLUME 96.9 fL (81-99); MONOCYTES # (AUTO) 0.8 (0.2-0.8); MONOCYTES % 9.2 % (4.4-11.3); NEUTROPHILS # (AUTO) 5.4 (2.1-6.9); NEUTROPHILS % 62.2 % (38.7-80.0); PLATELET COUNT 221 x10e3/uL (140-360); RED BLOOD COUNT 4.89 x10e6/uL (3.6-5.1); RED CELL DISTRIBUTION WIDTH 15.1 % (11.7-14.4); WHITE BLOOD COUNT 8.71 x10e3/uL (4.8-10.8)
[~2024-10-25] MED LIST changes: +ARNUITY ELLIP200 MCG INH; +DOXYCYCLINE HY100 MG PO; +FAMOTIDINE20 MG PO; +FENTANYL CITRATE/PF 100MCG/2 ML INJ ONE; +FOLIC ACID0.4 MG PO; +LIDOCAINE HCL 2% LOCAL INJ 5 ML SDV VIAL INJ ONE; +PROPOFOL IV EMULSION 10 MG/ML 20 ML VIAL ONE; +PROTONIX20 MG PO; +SIMVASTATIN40 MG PO
[2024-10-25] MEDS: LACTATED RINGER'S 1,000 ML ONE (12:35)
[2024-10-25 13:21] VITALS: TEMP 97.2
[2024-10-25 13:39] VITALS: BP 127/64; PULSE 66; RESP 18; O2SAT 99
== END | disposition home or self-care (01) ==
LOC: OR 11:12
PROVIDERS: ATTEND Internal Medicine Gastroenterology
DX: K29.50 Unspecified chronic gastritis without bleeding (principal); K31.7 Polyp of stomach and duodenum; K20.90 Esophagitis, unspecified without bleeding; K21.9 Gastro-esophageal reflux disease without esophagitis; G47.33 Obstructive sleep apnea (adult) (pediatric); M06.9 Rheumatoid arthritis, unspecified; I10 Essential (primary) hypertension; E78.5 Hyperlipidemia, unspecified; Z88.6 Allergy status to analgesic agent; Z88.0 Allergy status to penicillin; Z01.810 Encounter for preprocedural cardiovascular examination; Z01.812 Encounter for preprocedural laboratory examination; Z79.899 Other long term (current) drug therapy
CPT/HCPCS: 36415; 43239; 85025; 88305; 88342; 93005; J2003; J2470; J2704; J3010; J7121